=== PATIENT | female | born 1940 | race Caucasian/White ===

== ENCOUNTER → 2016-06-14 | Outpatient (CLI) | payer MEDICARE, OTHER | LOC: MAMO 06-09 14:50 | DX: Z12.31 Encounter for screening mammogram for malignant neoplasm of breast (principal); Z78.0 Asymptomatic menopausal state | CPT/HCPCS: G0202 ==

== ENCOUNTER 2020-06-11 15:57 | Inpatient (IN) | payer MEDICARE, OTHER ==
[~2020-06-11] VITALS: Ht 172.7 cm; Wt 86.2 kg
[~2020-06-11 15:57] MED LIST: AZITHROMYCIN250 MG PO
[2020-06-11 16:58] LABS: HEMOGLOBIN 12.7 gm/dl (12.3-15.3); RED BLOOD COUNT 4.21 M/UL (4.00-5.10); WHITE BLOOD COUNT 10.7 K/UL (4.5-11.0)
[2020-06-11 17:29] LABS: BUN/CREATININE RATIO 6 (0-10)
[2020-06-11] MEDS ORDERED: CETIRIZINE HCL10 MG PO (19:46)
[2020-06-11] MEDS ORDERED: GABAPENTIN400 MG PO (19:46)
[2020-06-11] MEDS ORDERED: PERCOCET 10-321 EACH PO (19:47)
[2020-06-11] MEDS ORDERED: ALLOPURINOL100 MG PO (19:48)
[2020-06-11] MEDS ORDERED: LOTREL 10-20 M1 EACH PO (19:48)
[2020-06-11] MEDS ORDERED: ZOFRAN ODT 4 MG4 MG PO (19:48)
[2020-06-11] MEDS ORDERED: COLCHICINE0.6 MG PO (19:49)
[2020-06-11] MEDS ORDERED: ESOMEPRAZOLE MA40 MG PO (19:49)
[2020-06-11] MEDS ORDERED: MONTELUKAST SOD10 MG PO (19:50)
[2020-06-11] MEDS ORDERED: PROVENTIL HFA6.7 GM INH (19:50)
[2020-06-11] MEDS ORDERED: FISH OIL 1,0001 EAC1 PO (19:51)
[2020-06-11] MEDS ORDERED: GAS-X125 M1 PO (19:51)
[2020-06-11] MEDS ORDERED: ECOTRIN81 MG PO (19:51)
[2020-06-11] MEDS ORDERED: VITAMIN E400 UNI4 PO (19:52)
[2020-06-11] MEDS ORDERED: VITAMIN D3125 MCG PO (19:53)
[2020-06-11] MEDS ORDERED: C-10001000 MG PO (19:54)
[2020-06-11] MEDS ORDERED: B-125000 MCG SL (19:54)
[2020-06-11] MEDS ORDERED: 8 HOUR PAIN RE650 MG PO (20:01)
[2020-06-12 02:47] LABS: HEMOGLOBIN 10.9 gm/dl (12.3-15.3)
[2020-06-12 03:02] LABS: RED BLOOD COUNT 3.7 M/UL (4.00-5.10)
[2020-06-12 03:13] LABS: BUN/CREATININE RATIO 7 (0-10)
[2020-06-12 10:17] LABS: BORDETELLA PARAPERTUSSIS Not Detected (Not Detectd); BORDETELLA PERTUSSIS Not Detected (Not Detectd); CHLAMYDIA PNEUMONIAE Not Detected (Not Detectd); CORONAVIRUS HKU1 Not Detected (Not Detectd); CORONAVIRUS NL63 Not Detected (Not Detectd); CORONAVIRUS OC43 Not Detected (Not Detectd); CORONOAVIRUS 229E Not Detected (Not Detectd); HUMAN METAPNEUMOVIRUS Not Detected (Not Detectd); HUMAN RHINOVIRUS/ENTEROVIRUS Not Detected (Not Detectd); INFLUENZA A Not Detected (Not Detectd); INFLUENZA B Not Detected (Not Detectd); MYCOPLASMA PNEUMONIAE Not Detected (Not Detectd); PARAINFLUENZA VIRUS 1 Not Detected (Not Detectd); PARAINFLUENZA VIRUS 2 Not Detected (Not Detectd); PARAINFLUENZA VIRUS 3 Not Detected (Not Detectd); PARAINFLUENZA VIRUS 4 Not Detected (Not Detectd); RESPIRATORY SYNCYTIAL VIRUS Not Detected (Not Detectd)
[2020-06-12 14:25] LABS: SARS-CoV-2 NOT DETECTED (Not Detectd)
[2020-06-13 02:57] LABS: HEMOGLOBIN 11.5 gm/dl (12.3-15.3); RED BLOOD COUNT 3.89 M/UL (4.00-5.10)
[2020-06-13 02:58] LABS: WHITE BLOOD COUNT 10.3 K/UL (4.5-11.0)
[2020-06-13 03:35] LABS: BUN/CREATININE RATIO 7 (0-10)
[2020-06-14 11:05] LABS: RED BLOOD COUNT 4.05 M/UL (4.00-5.10); WHITE BLOOD COUNT 11.3 K/UL (4.5-11.0)
[2020-06-14 11:26] LABS: BUN/CREATININE RATIO 9 (0-10)
[2020-06-15 03:33] LABS: HEMOGLOBIN 11.2 gm/dl (12.3-15.3); RED BLOOD COUNT 3.77 M/UL (4.00-5.10)
[2020-06-15 03:57] LABS: BUN/CREATININE RATIO 11 (0-10)
[2020-06-15] MEDS ORDERED: ELIQUIS 5 MG TAB5 MG PO (11:29)
[2020-06-15] MEDS ORDERED: DIGOXIN125 MCG PO (11:29)
[2020-06-15] MEDS ORDERED: DILTIAZEM ER420 MG PO (11:34)
[2020-06-15] MEDS ORDERED: SPIRIVA RESPIMAT4 GM INH (11:34)
[2020-06-15] MEDS ORDERED: DOXYCYCLINE HY100 M2 PO (11:43)
[2020-06-15] MEDS ORDERED: K-DUR TAB 20 M20 MEQ PO (11:43)
[2020-06-15] MEDS ORDERED: FUROSEMIDE20 MG PO (11:44)
[2020-06-15] MEDS ORDERED: PULMICORT FLEX90 MCG INH (11:44)
--- NOTE | 2020-06-15 12:44 | NUR ---
PT O2 SAT ON ROOM AIR = 85% - tw
== END 2020-06-15 17:26 | disposition home or self-care (01) | DRG 193 ==
LOC: ER1 15:57 → PROG CARE 18:04 → CDU 18:04 → PROG CARE 20:09
PROVIDERS: Internal Medicine Cardiovascular Disease; Physician Assistant Medical; Preventive Medicine Occupational Medicine; ADMIT Internal Medicine
PROC: B24BZZ4 Ultrasonography of Heart with Aorta, Transesophageal (ICD-10-PCS; principal; 2020-06-12)
DX: J18.9 Pneumonia, unspecified organism (principal); J96.01 Acute respiratory failure with hypoxia; J44.1 Chronic obstructive pulmonary disease with (acute) exacerbation; J44.0 Chronic obstructive pulmonary disease with (acute) lower respiratory infection; Z20.822 Contact with and (suspected) exposure to COVID-19; I27.20 Pulmonary hypertension, unspecified; G89.29 Other chronic pain; I35.0 Nonrheumatic aortic (valve) stenosis; E78.5 Hyperlipidemia, unspecified; R53.81 Other malaise; I11.0 Hypertensive heart disease with heart failure; I50.9 Heart failure, unspecified; M19.90 Unspecified osteoarthritis, unspecified site; I48.91 Unspecified atrial fibrillation; Z79.01 Long term (current) use of anticoagulants; Z79.82 Long term (current) use of aspirin; Z90.710 Acquired absence of both cervix and uterus; Z88.0 Allergy status to penicillin; Z88.8 Allergy status to other drugs, medicaments and biological substances; Z87.891 Personal history of nicotine dependence; Z80.1 Family history of malignant neoplasm of trachea, bronchus and lung; Z83.6 Family history of other diseases of the respiratory system; Z82.49 Family history of ischemic heart disease and other diseases of the circulatory system; Z81.1 Family history of alcohol abuse and dependence
CPT/HCPCS: ECHO; 36415; 36600; 71045; 71046; 80048; 80053; 81015; 82550; 82553; 82803; 83690; 83735; 83874; 83880; 84132; 84439; 84443; 84484; 85025; 85027; 85610; 85652; 85730; 86140; 87086; 87633; 93005; 93306; 94640; 94760; 96374; 96375; 96376; 97161; 99285; G0378; J0696; J2185; U0002